=== PATIENT | female | born 1960 | race Caucasian/White ===

== ENCOUNTER 2017-05-16 17:46 | Emergency (ER) | payer BC ==
[~2017-05-16] VITALS: Ht 167.6 cm; Wt 72.6 kg
[2017-05-16] MEDS ORDERED: AMOX500C2 PO (18:01)
--- NOTE | 2017-05-16 18:54 | NUR ---
Attemped to bring pt back to room 4a, pt was not found in ER waiting room.
== END 2017-05-16 18:56 | disposition left against medical advice (07) ==
LOC: ER 17:47
DX: Z53.21 Procedure and treatment not carried out due to patient leaving prior to being seen by health care provider (principal)
CPT/HCPCS: A4663

== ENCOUNTER 2024-12-21 09:53 | Emergency (ER) | payer MEDICARE, BC ==
[~2024-12-21] VITALS: Ht 165.1 cm; Wt 80.7 kg
[~2024-12-21 09:53] MED LIST: AMOX500C2 PO
[2024-12-21] MEDS ORDERED: ATOR10TA PO (10:13)
[2024-12-21] MEDS ORDERED: KETOROLAC TROMETHAMINE 15 MG INJ ONE (10:16)
[2024-12-21] MEDS: KETOROLAC TROMETHAMINE 15 MG INJ IVP ONE (10:29)
[2024-12-21 10:51] LABS: PLATELET COUNT (AUTO) 199 K/uL (179-408); RED BLOOD CELL COUNT(AUTO) 4.40 MIL/uL (3.63-4.92); RED CELL DISTRIBUTION WIDTH 14.5 % (12.3-17.7); WHITE BLOOD COUNT (AUTO) 3.6 K/uL (3.8-11.8)
[2024-12-21 11:17] LABS: ASPARTATE AMINOTRANSFERASE 19 U/L (15-37); TOTAL PROTEIN, SERUM 6.9 g/dL (6.4-8.2)
[2024-12-21 11:31] LABS: CREATININE 0.7 mg/dL (0.6-1.3); SODIUM SERUM 139.0 mmol/L (136-145); UREA NITROGEN, BLOOD 26.0 mg/dL (7-18)
[2024-12-21] MEDS ORDERED: CYCL5TAB PO (11:37)
[2024-12-21 11:45] VITALS: O2SAT 96
== END 2024-12-21 11:46 | disposition home or self-care (01) ==
LOC: ER 09:53
DX: R07.89 Other chest pain (principal); R07.81 Pleurodynia; E78.5 Hyperlipidemia, unspecified; F41.9 Anxiety disorder, unspecified; Z88.0 Allergy status to penicillin; Z79.899 Other long term (current) drug therapy; Z88.1 Allergy status to other antibiotic agents; Z88.5 Allergy status to narcotic agent; Z88.8 Allergy status to other drugs, medicaments and biological substances; Z90.49 Acquired absence of other specified parts of digestive tract; Z90.710 Acquired absence of both cervix and uterus; Z87.09 Personal history of other diseases of the respiratory system
CPT/HCPCS: 36415; 71045; 83690; 84484; 85025; A4606; A4663; J1885